=== PATIENT | male | born 1945 | race Caucasian/White ===

== ENCOUNTER 2021-08-04 12:17 | Outpatient (CLI) | payer MEDICARE, SELFPAY ==
--- NOTE | ~2021-08-04 | XR_ITS ---
XR knee LT 2V DATE: 08/04/2021 13:03 INDICATION: Left knee gives out TECHNIQUE: AP, crosstable lateral views COMPARISON: 10/22/2015 left knee FINDINGS: There is periarticular spurring and joint space narrowing involving primarily the patellofe moral and medial compartments. There is chondrocalcinosis of medial and lateral compartments. No fracture or dislocation or significant joint effusion is evident. No periosteal reaction or bone d estruction. Osteopenia. There is extensive calcification of the femoral, popliteal and trifurcation arteries. IMPRESSION: Osteoarthritis involving particularly the patellofemoral and medial prominence Chondrocalcinosis Osteopenia. Prominent arterial calcification Reviewed, dictated and finalized at location A.
--- NOTE | ~2021-08-04 | XR_ITS ---
XR knee RT 2V DATE: 08/04/2021 13:04 INDICATION: Right knee gives out TECHNIQUE: AP and crosstable lateral views of right knee COMPARISON: None FINDINGS: There is tricompartment osteoarthritis with periarticular spurring of the lateral femoral c ondyle and severe joint space narrowing at the medial and patellofemoral compartments and very promin ent periarticular spurring of the patellofemoral compartment and to a mild extent the medial compartm ent. There is chondrocalcinosis. Diffuse osteopenia. No fracture or dislocation, periosteal reaction or bone destruction is detected. No joint effusion is evident. There is severe calcification of the femoral, popliteal and trifurcation arteries. IMPRESSION: Osteopenia Tricompartment osteoarthritis, particularly severe at the patellofemoral and medial compartments Chondrocalcinosis Very prominent arterial calcification Reviewed, dictated and finalized at location A. IMPRESSION: Osteopenia Tricompartment osteoarthritis, particularly severe at the patellofemoral and me dial compartments Chondrocalcinosis Very prominent arterial calcification
--- NOTE | ~2021-08-04 | US_ITS ---
EXAMINATION: US venous doppler [facility] DATE: 08/04/2021 13:21 INDICATION: Lower limb swelling TECHNIQUE: Grayscale ultrasound images without and with compression and Doppler ultrasound images of the left lower extremity veins were obtained. COMPARISON: None. FINDINGS: The visualized portions of left common femoral vein, profunda (deep) femoral vein, femoral vein, popl iteal vein, peroneal veins, posterior tibial veins, gastrocnemius vein and greater saphenous vein out flow are patent. IMPRESSION: 1. No deep venous thrombosis in the left lower limb. Reviewed, dictated and finalized at location B.
== END 2021-08-04 12:18 | disposition home or self-care (01) ==
PROVIDERS: PCP Family Medicine; Visit Provider Family Medicine
DX: M85.861 Other specified disorders of bone density and structure, right lower leg (principal); M85.862 Other specified disorders of bone density and structure, left lower leg; I73.9 Peripheral vascular disease, unspecified; M17.0 Bilateral primary osteoarthritis of knee
CPT/HCPCS: 73560; 93971

== ENCOUNTER 2022-09-24 09:00 | Emergency (ER) | payer MEDICARE, SELFPAY ==
[2022-09-24] VITALS (38 sets, daily range): BP systolic 116–154; BP diastolic 68–134; PULSE 68–102; RESP 7–27; TEMP 37; O2SAT 93–99
--- NOTE | ~2022-09-24 | XR_ITS ---
EXAMINATION: XR knee RT min 4V DATE: 09/24/2022 10:47 INDICATION: Right knee pain. TECHNIQUE: 4 views of right knee were obtained. COMPARISON: Right knee radiographs 08/04/2021 FINDINGS: There is varus angulation at the knee. No fracture. There is severe osteoarthritis of media l compartment and moderate osteoarthritis of lateral and patellofemoral compartments. No knee joint e ffusion. IMPRESSION: 1. Severe right knee osteoarthritis. Reviewed, dictated and finalized at location A.
--- NOTE | ~2022-09-24 | XR_ITS ---
EXAMINATION: XR hip BI 2V w AP pelvis DATE: 09/24/2022 10:47 INDICATION: Bilateral hip pain. Fall. TECHNIQUE: An anteroposterior view of the pelvis and 2 views of each hip were obtained. COMPARISON: None. FINDINGS: There is a comminuted intertrochanteric fracture of proximal right femur. The main distal f racture fragment demonstrates 6 cm shortening, 1 shaft width posterior displacement, posterior angula tion, and varus angulation. There is mild osteoarthritis of the hips. IMPRESSION: 1. Comminuted intertrochanteric fracture of proximal right femur. 2. Mild osteoarthritis of the hips. Reviewed, dictated and finalized at location A.
--- NOTE | ~2022-09-24 | CT_ITS ---
EXAMINATION: CTA LE RT DATE: 09/24/2022 10:36 INDICATION: Peripheral arterial disease. Right knee dislocation. TECHNIQUE: Computed tomographic angiography (CTA) of the right lower extremity was performed with 150 mL Omnipaque-350 intravenous contrast. Automated exposure control and iterative reconstruction techn ique were employed. The dose-length product was 745.60 mGy-cm. Maximum intensity projection 3D-recons tructions of the arteries were created by the technologist on a separate workstation. COMPARISON: Right knee radiographs 08/04/2021 FINDINGS: The prostate is moderately enlarged. There is a comminuted intertrochanteric fracture of proximal rig ht femur. The main distal fracture fragment demonstrates one shaft width posterior displacement and e xternal rotation. There is mild right hip osteoarthritis. There is severe right knee osteoarthritis. There is severe midfoot osteoarthritis. No knee joint effusion. There are widespread arterial calcifi cations. There is no significant stenosis of common femoral artery, profunda femoris, superficial fem oral artery, popliteal artery, posterior tibial artery, or peroneal artery. There is total occlusion of mid anterior tibial artery with distal reconstitution. There is a moderate-sized Chi's cyst. IMPRESSION: 1. Comminuted intertrochanteric fracture of proximal right femur. 2. Total occlusion of right anterior tibial artery with distal reconstitution. 3. Particular osteoarthritis. 4. Moderate-sized Chi's cyst. Reviewed, dictated and finalized at location A.
--- NOTE | 2022-09-24 09:32 | ED.LOWEXIN ---
HPI - Extremity Injury (Lower) General Chief Complaint: Extremity Injury, Lower <Pricila Levine PA-C - Last Filed: 09/24/22 18:18> Stated Complaint: fall, R knee pain/deformity <Pricila Levine PA-C - Last Filed: 09/24/22 18:18> Time Seen by Provider: 09/24/22 09:01 <Pricila Levine PA-C - Last Filed: 09/24/22 18:18> History of Present Illness HPI Narrative: 77-year-old male with a history of secondary renal hyperparathyroidism, hypertension, stage III CKD, hyperlipidemia, type 2 diabetes reports for evaluation for right knee pain after a fall that occurred prior to arrival. Patient states he was taking the trash out when he tripped and fell to the ground, landing on his butt. EMS reports upon arrival, the lower extremity was deformed and an valgus stress. Upon transferring the patient to the [facility], the knee reduced. Patient is also reporting some pain to his right hip, but denies pain to the remainder of his lower extremity. He denies hitting his head or losing consciousness, denies neck pain or back pain, denies upper extremity injury. Denies paresthesias in his lower extremities. <CARLOS Stauffer Last Filed: 09/24/22 18:18> Related Data Home Medications: Home Medications Medication Instructions Recorded Confirmed cholecalciferol (vitamin D3) 25 25 mcg PO DAILY 07/23/21 08/12/22 mcg (1,000 unit) capsule <CARLOS Stauffer Last Filed: 09/24/22 18:18> Allergies/Adverse Reactions: Allergies Allergy/AdvReac Type Severity Reaction Status Date / Time atorvastatin Allergy Unknown Unknown Verified 09/24/22 09:47 lisinopril Allergy Unknown Hyperkalemi Verified 09/24/22 09:47 a Penicillins Allergy Unknown Skin Verified 09/24/22 09:47 Reaction <CARLOS Stauffer Last Filed: 09/24/22 18:18> Review of Systems Review of Systems: CONSTITUTIONAL: Denies fever, chills EYES: Denies visual changes, redness, or discharge. ENT: Denies rhinorrhea, congestion, sore throat, or otalgia. CARDIOVASCULAR: Denies chest pain, palpitations, or edema. RESPIRATORY: Denies cough or dyspnea. GASTROINTESTINAL: Denies abdominal pain, nausea, vomiting, or diarrhea. GENITOURINARY: Denies dysuria or hematuria. SKIN: Denies rash or itching. MUSCULOSKELETAL: See HPI NEUROLOGIC: Denies headache, numbness, dizziness, or weakness. PSYCHIATRIC: Denies anxiety or depression. <Pricila Levine PA-C - Last Filed: 09/24/22 18:18> [facility] Past Medical History Medical History: Medical History CKD (chronic kidney disease) stage 3, GFR 30-59 ml/min Hypercalcemia Hypercalcemia Hyperkalemia Hyperuricemia Obesity (BMI 30.0-34.9) Overweight (BMI 25.0-29.9) Renal failure Squamous cell carcinoma (~05/12/15) Tubulovillous adenoma of colon <Pricila Levine PA-C - Last Filed: 09/24/22 18:18> Family History Family History: Family History Sibling Malignant neoplasm of prostate Mother , age 82 Congestive heart failure Father , in WWII, age 41 No problems noted. <Pricila Levine PA-C - Last Filed: 09/24/22 18:18> Social History Social History: Social History Smoking status: Never smoker Alcohol intake: never Lack of Transportation: No Lack of Food: Never True Current Housing: I Have Housing Concerned About Future Housing: No Difficulty Paying Gas/Electric Bills: No Difficulty Paying for Meds: No Currently Unemployed: No Education: High School Diploma/GED Difficulty w/ Childcare or Family Care: No Gender identity (if verbalized by the patient): Male <Pricila Levine PA-C - Last Filed: 09/24/22 18:18> Exam Narrative: GENERAL: Well-appearing, in no acute distress. Patient resting comfortably in exam bed. He is plea
[2022-09-24 09:45] LABS: Basophils Absolute Auto 0.1 K/mm3 (0.0-0.1); Basophils Percent Auto 0.8 % (0.2-1.2); Eosinophils Absolute Auto 0.4 K/mm3 (0-0.3); Eosinophils Percent Auto 3.1 % (0-4.4); Hematocrit 43.6 % (42.0-52.0); Hemoglobin 14.3 g/dL (14.0-18.0); Immature Granulocyte Percent A 0.8 % (0-0.5); Lymphocytes Percent Auto 24.5 % (18.3-44.2); Mean Corpuscular HGB Conc 32.8 g/dl (32-36); Mean Corpuscular Volume 91.6 fl (80-100); Mean Platelet Volume 10.5 fl (7.4-10.4); Monocytes Absolute Auto 1.1 K/mm3 (0.1-0.6); Monocytes Percent Auto 8.3 % (2.6-8.5); Neutrophils Absolute Auto 8.2 K/mm3 (1.3-6.7); Neutrophils Percent Auto 62.5 % (45.5-73.1); Platelet Count Result 346 k/mm3 (150-375); Red Blood Count 4.76 M/mm3 (4.6-6.20); Red Cell Distribution Width 14.4 % (11.5-14.5)
[2022-09-24 10:03] LABS: Anion Gap 9 mmol/L (8-16); Blood Urea Nitrogen 21 mg/dL (9-20); Calcium 9.8 mg/dL (8.4-10.2); Carbon Dioxide 23 mmol/L (22-30); Chloride 102 mmol/L (98-107); Estimated CRCL calculation 42 ml/min; Estimated Glomerular Filt Rate 49; Glucose 212 mg/dL (65-110); Potassium 4.1 mmol/L (3.4-5.0); Sodium 134 mmol/L (137-145)
[2022-09-24] MEDS: HYDROmorphone HCL INJ (*CRX) 1 MG/ML SYR 0.5 MG IV PUSH ×2 (11:35→14:28)
--- NOTE | 2022-09-24 13:26 | PC.NURSE ---
pt accepted to [facility] ED and transport has been notified.
== END 2022-09-24 14:20 | disposition short-term general hospital (02) ==
PROVIDERS: Emergency Provider Physician Assistant; PCP Family Medicine
DX: S72.141A Displaced intertrochanteric fracture of right femur, initial encounter for closed fracture (principal); I12.9 Hypertensive chronic kidney disease with stage 1 through stage 4 chronic kidney disease, or unspecified chronic kidney disease; E11.22 Type 2 diabetes mellitus with diabetic chronic kidney disease; N18.30 Chronic kidney disease, stage 3 unspecified; E78.5 Hyperlipidemia, unspecified; W01.0XXA Fall on same level from slipping, tripping and stumbling without subsequent striking against object, initial encounter
CPT/HCPCS: 36415; 73521; 73564; 73706; 80048; 85025; 96374; 96376; 99285; J1170; Q9967

== ENCOUNTER 2022-12-01 13:13 | Outpatient (CLI) | payer MEDICARE, SELFPAY ==
--- NOTE | ~2022-12-01 | US_ITS ---
US venous doppler [facility] DATE: 12/01/2022 14:12 INDICATION: Leg swelling; right hip surgery 2 months ago. TECHNIQUE: Real-time and color flow imaging and Doppler analysis of the veins of the lower extremitie s COMPARISON: 08/04/2021 is duplex examination of the left lower extremity, reported negative for deep v enous thrombosis FINDINGS: Right lower extremity The greater saphenous vein is patent. There is spontaneous and phasic flow and normal augmentation an d color flow signal and normal compression of the veins of the right lower extremity. Right popliteal cyst is noted. Left lower extremity: The left greater saphenous vein is patent. There is spontaneous and phasic flow and normal augmentati on, color flow signal and normal compression of the left common femoral, deep femoral, femoral and po pliteal veins. There is lack of flow or absent compression of the left popliteal and peroneal veins. IMPRESSION: There is thrombosis of left popliteal and posterior tibial veins Right popliteal cyst Reviewed, dictated and finalized at Location A. Reviewed, dictated and finalized at location B.
== END 2022-12-01 13:14 | disposition home or self-care (01) ==
LOC: ANHIMG 13:15
PROVIDERS: PCP Family Medicine; Visit Provider Physician Assistant
DX: M79.89 Other specified soft tissue disorders (principal)
CPT/HCPCS: 93970